=== PATIENT | male | born 1985 | race Caucasian/White ===

== ENCOUNTER 2019-03-06 12:49 | Day surgery (SDC) | payer OTHER ==
[~2019-03-06] VITALS: Ht 185.4 cm; Wt 76.8 kg
[2019-03-06 13:26] VITALS: BP 151/90
[2019-03-06] MEDS ORDERED: LISI-167 PO (13:30)
[2019-03-06] MEDS ORDERED: AMIT10TA PO (13:30)
[2019-03-06] MEDS ORDERED: LACTATED RINGERS 1,000 ML IV SCH (13:31)
[2019-03-06 14:04] LABS: ALANINE AMINOTRANSFERASE 30 U/L (12-78); ALBUMIN 4.5 g/dL (3.4-5.0); ANION GAP 7 mmol/L (5-15); CALCIUM 9.2 mg/dL (8.5-10.1); CHLORIDE 108 mmol/L (98-107); CREATININE 1.27 mg/dL (0.7-1.3)
[2019-03-06 14:06] LABS: ALKALINE PHOSPHATASE 94 U/L (45-117); TOTAL PROTEIN 7.4 g/dL (6.4-8.2)
[2019-03-06] MEDS ORDERED: LIDOCAINE 1%, 20ML ONE (14:14)
[2019-03-06] MEDS ORDERED: BUPIVACAINE/PF 0.5% ONE (14:14)
[2019-03-06] MEDS ORDERED: BUPIVACAINE/PF-EPI 0.5% 1:200K ONE (15:48)
[2019-03-06] MEDS ORDERED: MIDAZOLAM 1 MG/ML, 2ML ONE (15:50)
[2019-03-06] MEDS ORDERED: FENTANYL PF 250 MCG/5ML ONE (15:52)
[2019-03-06] MEDS ORDERED: PROPOFOL 50 ML ONE (15:54)
[2019-03-06] MEDS ORDERED: SUCCINYLCHOLINE 20 MG/ML, 10ML ONE (15:59)
[2019-03-06] MEDS ORDERED: DEXAMETHASONE 4 MG/ML, 1ML ONE (15:59)
[2019-03-06] MEDS ORDERED: KETOROLAC 30 MG/1 ML ONE (15:59)
[2019-03-06] MEDS ORDERED: ROCURONIUM 10MG/ML,5ML ONE (15:59)
[2019-03-06] MEDS ORDERED: GLYCOPYRROLATE 0.2MG/1ML, 5ML ONE (15:59)
[2019-03-06] MEDS ORDERED: CEFAZOLIN 1,000 MG ONE (15:59)
[2019-03-06] MEDS ORDERED: EPHEDRINE 50 MG/ML, 1ML IM PRN (17:30)
[2019-03-06] MEDS ORDERED: MEPERIDINE/PF 25MG/0.5ML IVPush PRN (17:30)
[2019-03-06] MEDS ORDERED: hydrALAzine 20 MG/ML, 1ML IV PRN (17:30)
[2019-03-06] MEDS ORDERED: METOPROLOL 1 MG/ML, 5ML IV PRN (17:30)
[2019-03-06] MEDS ORDERED: ACETAMINOPHEN 325 MG TABLET PO PRN (17:30)
[2019-03-06] MEDS ORDERED: MIDAZOLAM 1 MG/ML, 2ML IV PRN (17:30)
[2019-03-06] MEDS ORDERED: MORPHINE SULFATE 4 MG/ML, 1ML IVPush PRN (17:30)
[2019-03-06] MEDS ORDERED: ONDANSETRON 2MG/ML, 2ML IV PRN (17:30)
[2019-03-06] MEDS ORDERED: OXYcodone 5 MG/5 ML ORAL.SOL UDC PO PRN (17:30)
[2019-03-06] MEDS ORDERED: DIPHENHYDRAMINE 50 MG/ML, 1ML IVPush PRN (17:30)
[2019-03-06] MEDS ORDERED: PROMETHAZINE 12.5 MG SUPP PR PRN (17:30)
[2019-03-06] MEDS ORDERED: EPHEDRINE 50 MG/ML, 1ML IVPush PRN (17:30)
[2019-03-06] MEDS ORDERED: ONDANSETRON ODT 8 MG PO PRN (17:30)
[2019-03-06] MEDS ORDERED: FENTANYL PF 100 MCG/2ML IV PRN (17:30)
[2019-03-06] MEDS ORDERED: DIAZEPAM 5 MG/ML, 2ML IVPush PRN (17:30)
[2019-03-06] MEDS ORDERED: OXYcodone 5 MG/5 ML ORAL.SOL UDC ONE (17:44)
== END 2019-03-06 21:00 | disposition home or self-care (01) ==
LOC: OUT 12:49 → 4NOR 18:09 → OUT 21:00
PROVIDERS: ATTEND Urology
DX: C62.92 Malignant neoplasm of left testis, unspecified whether descended or undescended (principal); Z72.89 Other problems related to lifestyle
CPT/HCPCS: 36415; 54530; 80053; 88309; J0330; J0690; J1100; J1885; J2250; J2704; J3010; J3490; J7120; G0378

== ENCOUNTER 2019-04-10 09:56 | Day surgery (SDC) | payer OTHER ==
[~2019-04-10] VITALS: Ht 185.4 cm; Wt 77.3 kg
[~2019-04-10 09:56] MED LIST: AMIT10TA PO; LISI-167 PO
[2019-04-10] MEDS ORDERED: SODIUM CHLORIDE 0.9% 1,000 ML IV SCH (10:15)
[2019-04-10] MEDS ORDERED: PLEASE ENTER HEIGHT AND WEIGHT MC SCH (10:30)
[2019-04-10] MEDS ORDERED: CEFAZOLIN PMX 1GM/50ML 50 ML IV ONE (10:30)
[2019-04-10 10:35] VITALS: BP 126/84
[2019-04-10] MEDS ORDERED: CEFAZOLIN PMX 1GM/50ML 50 ML ONE (10:41)
[2019-04-10] MEDS ORDERED: LIDOCAINE 1%, 20ML ONE (11:55)
[2019-04-10] MEDS ORDERED: FENTANYL PF 100 MCG/2ML ONE (12:31)
[2019-04-10] MEDS ORDERED: FLUMAZENIL 0.1 MG/1 ML, 5ML ONE (12:31)
[2019-04-10] MEDS ORDERED: MIDAZOLAM 1 MG/ML, 5ML ONE (12:31)
[2019-04-10] MEDS ORDERED: NALOXONE 1 MG/ML, 2ML ONE (12:31)
== END 2019-04-10 14:35 | disposition home or self-care (01) ==
LOC: OUT 09:56
PROVIDERS: ATTEND Internal Medicine Hematology & Oncology
DX: Z45.2 Encounter for adjustment and management of vascular access device (principal); C62.12 Malignant neoplasm of descended left testis; I10 Essential (primary) hypertension; Z90.79 Acquired absence of other genital organ(s); Z98.890 Other specified postprocedural states; Z79.899 Other long term (current) drug therapy; Z72.89 Other problems related to lifestyle
CPT/HCPCS: 36561; 76937; 77001; 99156; 99157; C1788; J0690; J1642; J2250; J3010; J2310